=== PATIENT | male | born 1955 | race Caucasian/White ===

== ENCOUNTER 2018-12-24 10:23 | Inpatient (IN) ==
[2018-12-24] MEDS ORDERED: CeFAZolin Syr 2,000MG/20 ML 2,000 MG/20 ML SYRINGE IVPB ONE (10:34)
[2018-12-24] MEDS ORDERED: Albuterol 2.5 MG/3 ML NEBULIZER IH ONE (10:34)
[2018-12-24] MEDS ORDERED: Ringers Solution, Lactated 1,000 ML IVC SCH (10:45)
[2018-12-24] MEDS ORDERED: Heparin 1,000 UNITS/500 mL 500 ML ONE ×2 (10:50→10:59)
[2018-12-24] MEDS ORDERED: Acetaminophen IV 1,000 MG/100 ML INFUS..BTL IVPB ONE (11:22)
[2018-12-24] MEDS ORDERED: *HR* Promethazine 25 MG/ML VIAL IVP PRN (11:22)
[2018-12-24] MEDS ORDERED: *HR* OxyCODONE Immed Rel 5 MG TABLET PO PRN ×2 (11:22→16:41)
[2018-12-24] MEDS ORDERED: *HR* FentaNYL (PF) 100 MCG/2 ML VIAL IVP PRN (11:22)
[2018-12-24 11:35] LABS: BUN/Creatinine Ratio 10 (6-26); Blood Urea Nitrogen 8 mg/dL (8-23); Carbon Dioxide 25 mEq/L (23-29); Chloride 96 mEq/L (98-107); Glucose 95 mg/dL (70-105); Osmolality,Calculated 260 (280-300); Potassium 4.6 mEq/L (3.5-5.1); Sodium 126 mEq/L (136-145); eGFR For African Americans > 60 (> 60); eGFR For Non-African Americans > 60 (> 60)
[2018-12-24] MEDS ORDERED: Calcium Gluconate 1,000 MG/10 ML VIAL ONE (12:29)
[2018-12-24] MEDS ORDERED: Vancomycin 1,000 MG, Sodium Chloride IRRigation 1,000 ML IR ONE (12:30)
[2018-12-24] MEDS ORDERED: *HR* Rocuronium Bromide 50 MG/5 ML VIAL ONE (12:43)
[2018-12-24] MEDS ORDERED: Dexamethasone 4 MG/ML VIAL ONE (12:43)
[2018-12-24] MEDS ORDERED: *HR* Succinylcholine 200 MG/10 ML VIAL IVP ONE (12:43)
[2018-12-24] MEDS ORDERED: Lidocaine HCL 4 ML Topical Solution (Laryng-O-Jet Kit Sterile Pak) TP ONE (12:43)
[2018-12-24] MEDS ORDERED: Ondansetron 4 MG/2 ML VIAL ONE (12:43)
[2018-12-24] MEDS ORDERED: *HR* Propofol 200 MG/20 ML VIAL IVP ONE (12:43)
[2018-12-24] MEDS ORDERED: *HR* FentaNYL (PF) 100 MCG/2 ML VIAL ONE (12:43)
[2018-12-24] MEDS ORDERED: *HR* Metoprolol 5 MG/5 ML VIAL IVP ONE (12:43)
[2018-12-24] MEDS ORDERED: Lidocaine -MPF 2% 2 ML VIAL ONE (12:43)
[2018-12-24] MEDS ORDERED: *HR* Midazolam HCl 2 MG/2 ML VIAL ONE ×2 (12:43)
[2018-12-24] MEDS ORDERED: *HR* PHENYLEPHRINE 1,000 MCG/10 ML SYRINGE IVP ONE (13:58)
[2018-12-24] MEDS ORDERED: *HR* Heparin 5,000 UNIT/ML VIAL ONE ×2 (13:58→14:32)
[2018-12-24] MEDS ORDERED: Neostigmine Methylsulfate 3 MG/3 ML SYRINGE ONE (15:05)
[2018-12-24] MEDS ORDERED: *HR* HYDROMORPHONE 2 MG/ML VIAL ONE (15:10)
[2018-12-24] MEDS ORDERED: *HR* HYDROcodone/Acet 5/325 mg TABLET PO PRN (16:41)
[2018-12-24] MEDS ORDERED: *HR* Labetalol 20 MG/4 ML SYRINGE IVP PRN (16:41)
[2018-12-24] MEDS ORDERED: Ondansetron 4 MG/2 ML VIAL IVP PRN (16:41)
[2018-12-24] MEDS ORDERED: Acetaminophen 325 MG TABLET PO PRN (16:41)
[2018-12-24] MEDS ORDERED: Naloxone 0.4 MG/ML INJ IVP PRN (16:41)
[2018-12-24] MEDS ORDERED: 0.9 % Sodium Chloride 1,000 ML IVC SCH (16:41)
[2018-12-24] MEDS: *HR* Metoprolol 5 MG/5 ML VIAL IVP SCH ×2 (18:44→23:39)
[2018-12-25] MEDS ORDERED: *HR* Heparin 5,000 UNIT/ML VIAL SQ SCH ×2 (06:00)
[2018-12-25 06:15] LABS: Basophils % 0.2 %; Eosinophils % 0.1 %; Hematocrit 40.5 % (37.5-50.1); Hemoglobin 14.2 g/dL (12.9-16.9); Immature Granulocytes % 0.3 % (0-4); Lymphocytes # 1.1 K/mcL (0.6-4.6); Lymphocytes % 11.7 %; Mean Corpuscular HGB Conc 35.1 g/dL (31.6-35.5); Mean Corpuscular Hemoglobin 32.6 pg (28.0-33.3); Mean Corpuscular Volume 92.9 fL (83.0-100.0); Mean Platelet Volume 9.2 fL (9.4-12.4); Monocytes # 0.6 K/mcL (0.0-1.3); Monocytes % 6.7 %; Neutrophils # 7.3 K/mcL (1.6-8.9); Platelet Count 241 K/mcL (140-400); Red Blood Count 4.36 M/mcL (4.19-5.50)
[2018-12-25 06:34] LABS: BUN/Creatinine Ratio 11 (6-26); Blood Urea Nitrogen 8 mg/dL (8-23); Calcium 8.3 mg/dL (8.6-10.3); Carbon Dioxide 17 mEq/L (23-29); Chloride 98 mEq/L (98-107); Glucose 114 mg/dL (70-105); Osmolality,Calculated 259 (280-300); Potassium 4.2 mEq/L (3.5-5.1); Sodium 125 mEq/L (136-145); eGFR For African Americans > 60 (> 60); eGFR For Non-African Americans > 60 (> 60)
[2018-12-25] MEDS: *HR* Metoprolol 5 MG/5 ML VIAL IVP SCH (07:13)
[2018-12-25 07:16] VITALS: BP 124/77
[2018-12-25] MEDS ORDERED: Valsartan 160 MG TABLET PO SCH (09:00)
[2018-12-25] MEDS ORDERED: amLODIPine 5 MG TABLET PO SCH (09:00)
== END 2018-12-25 11:11 | disposition home or self-care (01) | DRG 253 ==
LOC: SAMDAY 10:23 → 2NNU 16:15
PROVIDERS: ADMIT Surgery; ATTEND Surgery

== ENCOUNTER 2021-02-18 09:38 | Inpatient (IN) ==
[2021-02-18] MEDS ORDERED: 0.9 % Sodium Chloride 1,000 ML IVC ONE ×2 (10:27→13:03)
[2021-02-18] MEDS ORDERED: Ketorolac 15 MG/ML VIAL IVP ONE (10:28)
[2021-02-18] MEDS ORDERED: diazePAM 10 MG/2 ML SYRINGE IVP STA (10:28)
[2021-02-18 10:49] LABS: Basophils # 0.1 K/mcL (0.0-0.2); Basophils % 1.4 %; Eosinophils # 0.1 K/mcL (0.0-0.6); Eosinophils % 0.7 %; Hemoglobin 19.9 g/dL (12.9-16.9); Immature Granulocytes % 0.4 % (0-4); Lymphocytes # 1.4 K/mcL (0.6-4.6); Lymphocytes % 19.7 %; Mean Corpuscular HGB Conc 34.6 g/dL (31.6-35.5); Mean Corpuscular Hemoglobin 33.2 pg (28.0-33.3); Mean Platelet Volume 9.8 fL (9.4-12.4); Monocytes # 0.7 K/mcL (0.0-1.3); Monocytes % 9.3 %; Neutrophils # 4.8 K/mcL (1.6-8.9); Platelet Count 207 K/mcL (140-400); Red Blood Count 5.99 M/mcL (4.19-5.50); Red Cell Distribution Width 14.1 % (11.5-14.5); Segmented Neutrophils % 68.5 %; White Blood Count 7.1 K/mcL (4.3-11.1)
[2021-02-18 10:52] LABS: Hematocrit 57.5 % (37.5-50.1)
[2021-02-18 11:15] LABS: Alanine Aminotransferase 17 Units/L (7-52); Albumin 3.8 g/dL (3.5-5.7); Albumin/Globulin Ratio 1.1 (1.1-2.2); Alkaline Phosphatase 74 Units/L (34-104); Aspartate Amino Transferase 31 Units/L (13-39); BUN/Creatinine Ratio 13 (6-26); Bilirubin,Total 0.8 mg/dL (0.3-1.0); Blood Urea Nitrogen 11 mg/dL (8-23); Calcium 9.4 mg/dL (8.6-10.3); Carbon Dioxide 24 mEq/L (23-29); Chloride 100 mEq/L (98-107); Creatine Kinase 518 Units/L (30-223); Globulin 3.4 g/dL (2.4-3.5); Glucose 99 mg/dL (70-105); Osmolality,Calculated 273 (280-300); Sodium 132 mEq/L (136-145); Total Protein 7.2 g/dL (6.4-8.9); eGFR For African Americans > 60 (> 60); eGFR For Non-African Americans > 60 (> 60)
[2021-02-18 13:14] LABS: Bacteria,Urine Few per hpf (None-Few); Bilirubin,Urine Negative (Negative); Blood,Urine Trace (Negative); Clarity,Urine Turbid (Clear); Color,Urine Yellow (Yellow); Glucose,Urine (UA) Normal (Normal); Hyaline Casts,Urine Few per lpf (None Seen); Ketones,Urine Negative (Negative); Leukocyte Esterase,Urine Large (Negative); Mucus,Urine Few per lpf (None-Few); Nitrite,Urine Positive (Negative); Protein,Urine Negative (Neg-Trace); Specific Gravity,Urine 1.012 (1.010-1.025); Urobilinogen,Urine Normal (Normal); WBC,Urine TNTC per hpf (0-3)
[2021-02-18] MEDS ORDERED: Isovue-370 500 ML BOTTLE IVP ONE (14:39)
[2021-02-18] MEDS ORDERED: *HR* Heparin 5,000 UNIT/ML VIAL IVP PRN ×2 (14:46)
[2021-02-18] MEDS ORDERED: *HR* Heparin 5,000 UNIT/ML VIAL IVP ONE (14:46)
[2021-02-18] MEDS ORDERED: Ondansetron 4 MG/2 ML VIAL IVP PRN (15:31)
[2021-02-18] MEDS ORDERED: Naloxone 0.4 MG/ML INJ IVP PRN (15:31)
[2021-02-18] MEDS: Heparin 25,000UNIT/250ML 1/2NS 25,000 UNIT/250 ML IV.SOLN IVC SCH (16:09)
[2021-02-18 16:42] LABS: INR 1.1
[2021-02-18] MEDS: 0.9 % Sodium Chloride 1,000 ML IVC SCH (18:33)
[2021-02-18] MEDS: cefTRIAXone 1,000 MG in Water for inj. (sterile) 10 ML IVP SCH (20:11)
[2021-02-19 00:33] LABS: Basophils # 0.1 K/mcL (0.0-0.2); Basophils % 1.4 %; Eosinophils # 0.1 K/mcL (0.0-0.6); Eosinophils % 1.7 %; Hematocrit 49.3 % (37.5-50.1); Immature Granulocytes % 0.5 % (0-4); Lymphocytes # 2.5 K/mcL (0.6-4.6); Lymphocytes % 38.1 %; Mean Corpuscular HGB Conc 34.1 g/dL (31.6-35.5); Mean Corpuscular Hemoglobin 32.7 pg (28.0-33.3); Mean Corpuscular Volume 96.1 fL (83.0-100.0); Mean Platelet Volume 10.3 fL (9.4-12.4); Monocytes # 0.5 K/mcL (0.0-1.3); Monocytes % 8.1 %; Neutrophils # 3.3 K/mcL (1.6-8.9); Platelet Count 177 K/mcL (140-400); Red Blood Count 5.13 M/mcL (4.19-5.50); Red Cell Distribution Width 13.9 % (11.5-14.5); Segmented Neutrophils % 50.2 %; White Blood Count 6.5 K/mcL (4.3-11.1)
[2021-02-19 00:34] LABS: Hemoglobin 16.8 g/dL (12.9-16.9)
[2021-02-19 00:38] LABS: BUN/Creatinine Ratio 13 (6-26); Blood Urea Nitrogen 10 mg/dL (8-23); Calcium 8.1 mg/dL (8.6-10.3); Carbon Dioxide 19 mEq/L (23-29); Chloride 105 mEq/L (98-107); Chol/HDL Ratio 4.3 (0-4.9); Cholesterol 147 mg/dL (< 200); Glucose 87 mg/dL (70-105); HDL Cholesterol 34 mg/dL (40-59); LDL Cholesterol,Calculated 95 mg/dL (< 100); Osmolality,Calculated 270 (280-300); Potassium 3.9 mEq/L (3.5-5.1); Sodium 131 mEq/L (136-145); Triglycerides 90 mg/dL (< 150); eGFR For African Americans > 60 (> 60); eGFR For Non-African Americans > 60 (> 60)
[2021-02-19] MEDS: 0.9 % Sodium Chloride 1,000 ML IVC SCH ×2 (03:50→17:05)
[2021-02-19] MEDS: Folic Acid 1 MG TABLET PO SCH (08:47)
[2021-02-19] MEDS: Aspirin 81 MG TAB.CHEW PO SCH (08:47)
[2021-02-19] MEDS: Thiamine (B-1) 100 MG TABLET PO SCH (08:47)
[2021-02-19] MEDS ORDERED: Nicotine 2 MG GUM BC PRN (13:21)
[2021-02-19] MEDS: cefTRIAXone 1,000 MG in Water for inj. (sterile) 10 ML IVP SCH (14:59)
[2021-02-19] MEDS: Nicotine 21 MG PATCH.TD24 TD SCH (15:03)
[2021-02-19] MEDS: Heparin 25,000UNIT/250ML 1/2NS 25,000 UNIT/250 ML IV.SOLN IVC SCH (16:59)
[2021-02-20] MEDS: 0.9 % Sodium Chloride 1,000 ML IVC SCH ×2 (06:52→21:06)
[2021-02-20] MEDS ORDERED: *HR* Heparin 5,000 UNIT/ML VIAL ONE (07:23)
[2021-02-20] MEDS ORDERED: Bupivacaine-MPF 0.25% 10 ML VIAL ONE (07:23)
[2021-02-20] MEDS ORDERED: Vancomycin 1,000 MG VIAL ONE (07:24)
[2021-02-20] MEDS: Aspirin 81 MG TAB.CHEW PO SCH (09:32)
[2021-02-20] MEDS: Nicotine 21 MG PATCH.TD24 TD SCH ×2 (09:32→18:33)
[2021-02-20] MEDS: Thiamine (B-1) 100 MG TABLET PO SCH (09:33)
[2021-02-20] MEDS: Folic Acid 1 MG TABLET PO SCH (09:33)
[2021-02-20] MEDS ORDERED: Heparin 1,000 UNITS/500 mL 500 ML ONE ×2 (11:16→12:15)
[2021-02-20] MEDS ORDERED: cefTRIAXone 1,000 MG in Water for inj. (sterile) 10 ML IVP ONE (11:17)
[2021-02-20] MEDS ORDERED: *HR* Rocuronium Bromide 50 MG/5 ML VIAL ONE (11:36)
[2021-02-20] MEDS ORDERED: *HR* Propofol 200 MG/20 ML VIAL IVP ONE ×2 (11:36→15:13)
[2021-02-20] MEDS ORDERED: Ondansetron 4 MG/2 ML VIAL ONE (11:36)
[2021-02-20] MEDS ORDERED: Lidocaine -MPF 2% 5 ML VIAL ONE ×2 (11:36→11:49)
[2021-02-20] MEDS ORDERED: *HR* Succinylcholine 200 MG/10 ML VIAL IVP ONE (11:36)
[2021-02-20] MEDS ORDERED: *HR* Phenylephrine 10 MG/ML VIAL ONE (11:37)
[2021-02-20] MEDS ORDERED: *HR* FentaNYL (PF) 100 MCG/2 ML VIAL ONE ×2 (11:41→15:22)
[2021-02-20] MEDS ORDERED: *HR* Midazolam HCl 2 MG/2 ML VIAL ONE (12:30)
[2021-02-20] MEDS ORDERED: ceFAZolin 2,000 MG in Water for inj. (sterile) 20 ML IVP ONE (13:30)
[2021-02-20] MEDS ORDERED: Sugammadex Sodium 200 MG/2 ML VIAL IV ONE (14:47)
[2021-02-20] MEDS ORDERED: *HR* OxyCODONE Immed Rel 5 MG TABLET PO PRN (17:22)
[2021-02-20] MEDS ORDERED: *HR* HYDROcodone/Acet 5/325 mg TABLET PO PRN (17:22)
[2021-02-20] MEDS ORDERED: *HR* Labetalol 20 MG/4 ML SYRINGE IVP PRN (17:22)
[2021-02-20] MEDS ORDERED: Ondansetron 4 MG/2 ML VIAL IVP PRN (17:22)
[2021-02-20] MEDS ORDERED: Acetaminophen 325 MG TABLET PO PRN ×2 (17:22)
[2021-02-20] MEDS ORDERED: Naloxone 0.4 MG/ML INJ IVP PRN (17:22)
[2021-02-20] MEDS ORDERED: Nicotine 2 MG GUM BC PRN (17:22)
[2021-02-20 17:57] LABS: Basophils % 0.4 %; Hematocrit 52.5 % (37.5-50.1); Hemoglobin 18.2 g/dL (12.9-16.9); Immature Granulocytes % 1.2 % (0-4); Lymphocytes # 0.6 K/mcL (0.6-4.6); Mean Corpuscular HGB Conc 34.7 g/dL (31.6-35.5); Mean Corpuscular Hemoglobin 33.1 pg (28.0-33.3); Mean Corpuscular Volume 95.5 fL (83.0-100.0); Mean Platelet Volume 10.6 fL (9.4-12.4); Monocytes # 0.2 K/mcL (0.0-1.3); Monocytes % 2.2 %; Neutrophils # 6.9 K/mcL (1.6-8.9); Platelet Count 176 K/mcL (140-400); Red Cell Distribution Width 13.8 % (11.5-14.5); Segmented Neutrophils % 88.2 %; White Blood Count 7.8 K/mcL (4.3-11.1)
[2021-02-20] MEDS: Heparin 25,000UNIT/250ML 1/2NS 25,000 UNIT/250 ML IV.SOLN IVC SCH (18:34)
[2021-02-20] MEDS: *HR* OxyCODONE Immed Rel 5 MG TABLET PO PRN (19:30)
[2021-02-20] MEDS: *HR* HYDROcodone/Acet 5/325 mg TABLET PO PRN (21:06)
[2021-02-20] MEDS: CeFAZolin 2 GM/120 ML BAG IVPB SCH (21:12)
[2021-02-21] MEDS: *HR* OxyCODONE Immed Rel 5 MG TABLET PO PRN (01:30)
[2021-02-21] MEDS: *HR* HYDROcodone/Acet 5/325 mg TABLET PO PRN (03:18)
[2021-02-21] MEDS: CeFAZolin 2 GM/120 ML BAG IVPB SCH (04:10)
[2021-02-21] MEDS ORDERED: *HR* Heparin 5,000 UNIT/ML VIAL SQ SCH (06:00)
[2021-02-21 06:03] LABS: Hematocrit 50.4 % (37.5-50.1); Hemoglobin 16.9 g/dL (12.9-16.9); Mean Corpuscular HGB Conc 33.5 g/dL (31.6-35.5); Mean Corpuscular Hemoglobin 32.5 pg (28.0-33.3); Mean Corpuscular Volume 96.9 fL (83.0-100.0); Mean Platelet Volume 10.2 fL (9.4-12.4); Platelet Count 182 K/mcL (140-400); Red Cell Distribution Width 13.8 % (11.5-14.5); White Blood Count 7.3 K/mcL (4.3-11.1)
[2021-02-21] MEDS: 0.9 % Sodium Chloride 1,000 ML IVC SCH (06:16)
[2021-02-21 06:47] VITALS: BP 173/76; PULSE 67; TEMP 97.8; O2SAT 93
[2021-02-21] MEDS ORDERED: Aspirin 81 MG TAB.CHEW PO SCH (09:00)
[2021-02-21] MEDS ORDERED: Thiamine (B-1) 100 MG TABLET PO SCH (09:00)
[2021-02-21] MEDS ORDERED: Folic Acid 1 MG TABLET PO SCH (09:00)
[2021-02-21] MEDS ORDERED: Nicotine 21 MG PATCH.TD24 TD SCH (09:00)
== END 2021-02-21 10:41 | disposition home or self-care (01) | DRG 271 ==
LOC: EMEROOARM 09:38 → 3ANU 09:38 → SUATTDRO 17:00 → 3ANU 18:21
PROVIDERS: ADMIT General Practice; ATTEND Internal Medicine

== ENCOUNTER 2021-04-27 09:21 | Inpatient (IN) ==
[~2021-04-27 09:21] MED LIST: *HR* FentaNYL (PF) 100 MCG/2 ML VIAL IVP PRN; *HR* HYDROmorphone PF 0.5 MG/0.5 ML SYRINGE IVP PRN; *HR* OxyCODONE Immed Rel 5 MG TABLET PO ONE; Ondansetron 4 MG/2 ML VIAL IVP PRN
[2021-04-27] MEDS ORDERED: *HR* Midazolam HCl 2 MG/2 ML VIAL ONE (09:30)
[2021-04-27] MEDS ORDERED: *HR* FentaNYL (PF) 100 MCG/2 ML VIAL ONE (09:30)
[2021-04-27] MEDS ORDERED: *HR* Propofol 200 MG/20 ML VIAL IVP ONE (09:31)
[2021-04-27] MEDS ORDERED: Lidocaine -MPF 2% 5 ML VIAL ONE (09:35)
[2021-04-27] MEDS ORDERED: Ondansetron 4 MG/2 ML VIAL ONE (09:35)
[2021-04-27] MEDS ORDERED: Ipratropium/Albuterol Neb 3 ML IH ONE (09:53)
[2021-04-27] MEDS ORDERED: *HR* OxyCODONE Immed Rel 5 MG TABLET PO ONE (09:53)
[2021-04-27] MEDS ORDERED: Ropivacaine/PF 0.5% 30 ML VIAL ONE (10:15)
[2021-04-27] MEDS ORDERED: ROPIVACAINE/PF/NS 0.25% 1 EACH SYRINGE INTRAART ONE (10:16)
[2021-04-27] MEDS ORDERED: CeFAZolin Syr 2,000MG/20 ML 2,000 MG/20 ML SYRINGE IVPB ONE (10:18)
[2021-04-27] MEDS ORDERED: Vancomycin 1,250 MG/262.5 ML IV.SOLN IVPB ONE (10:18)
[2021-04-27] MEDS ORDERED: Ringers Solution, Lactated 1,000 ML IVC SCH (10:30)
[2021-04-27] MEDS ORDERED: Famotidine 20 MG TABLET PO ONE (10:45)
[2021-04-27] MEDS ORDERED: Vancomycin 1,000 MG, Sodium Chloride IRRigation 1,000 ML IR ONE (11:05)
[2021-04-27] MEDS ORDERED: *HR* HYDROMORPHONE 2 MG/ML VIAL ONE (12:03)
[2021-04-27] MEDS ORDERED: Naloxone 0.4 MG/ML INJ IVP PRN (16:44)
[2021-04-27] MEDS ORDERED: 0.9 % Sodium Chloride 1,000 ML IVC SCH (16:44)
[2021-04-27] MEDS ORDERED: traZODone 50 MG TABLET PO PRN (16:44)
[2021-04-27] MEDS ORDERED: Ondansetron 4 MG/2 ML VIAL IVP PRN (16:44)
[2021-04-27] MEDS ORDERED: *HR* OxyCODONE/APAP 5/325 TABLET PO PRN (16:44)
[2021-04-27] MEDS ORDERED: *HR* Labetalol 20 MG/4 ML SYRINGE IVP PRN (16:44)
[2021-04-27] MEDS ORDERED: *HR* OxyCODONE/APAP 10/325 TABLET PO PRN (16:44)
[2021-04-27] MEDS: Ketorolac 30 MG/ML VIAL IVP SCH (17:55)
[2021-04-27] MEDS: *HR* Metoprolol 5 MG/5 ML VIAL IVP SCH (17:55)
[2021-04-27] MEDS: CeFAZolin 2 GM/120 ML BAG IVPB SCH (19:55)
[2021-04-28] MEDS: *HR* Metoprolol 5 MG/5 ML VIAL IVP SCH ×5 (00:18→23:04)
[2021-04-28] MEDS: Ketorolac 30 MG/ML VIAL IVP SCH ×5 (00:18→23:03)
[2021-04-28] MEDS: CeFAZolin 2 GM/120 ML BAG IVPB SCH (03:57)
[2021-04-28] MEDS ORDERED: *HR* Heparin 5,000 UNIT/ML VIAL SQ SCH (06:00)
[2021-04-28 07:03] LABS: Basophils % 0.5 %; Eosinophils % 0.6 %; Hematocrit 34.5 % (37.5-50.1); Hemoglobin 11.5 g/dL (12.9-16.9); Immature Granulocytes % 0.8 % (0-4); Lymphocytes # 1.1 K/mcL (0.6-4.6); Lymphocytes % 17.5 %; Mean Corpuscular HGB Conc 33.3 g/dL (31.6-35.5); Mean Corpuscular Hemoglobin 30.5 pg (28.0-33.3); Mean Corpuscular Volume 91.5 fL (83.0-100.0); Mean Platelet Volume 9.5 fL (9.4-12.4); Monocytes # 0.6 K/mcL (0.0-1.3); Monocytes % 9.7 %; Neutrophils # 4.6 K/mcL (1.6-8.9); Platelet Count 310 K/mcL (140-400); Red Blood Count 3.77 M/mcL (4.19-5.50); Red Cell Distribution Width 13.1 % (11.5-14.5); Segmented Neutrophils % 70.9 %; White Blood Count 6.5 K/mcL (4.3-11.1)
[2021-04-28 07:22] LABS: BUN/Creatinine Ratio 25 (6-26); Blood Urea Nitrogen 16 mg/dL (8-23); Calcium 8.2 mg/dL (8.6-10.3); Carbon Dioxide 19 mEq/L (23-29); Chloride 97 mEq/L (98-107); Glucose 87 mg/dL (70-105); Osmolality,Calculated 265 (280-300); Potassium 3.7 mEq/L (3.5-5.1); Sodium 127 mEq/L (136-145); eGFR For African Americans > 60 (> 60); eGFR For Non-African Americans > 60 (> 60)
[2021-04-28] MEDS: Lisinopril-HCTZ 20-12.5mg TABLET PO SCH (08:04)
[2021-04-28] MEDS: *HR* OxyCODONE/APAP 7.5/325 TABLET PO PRN ×2 (08:05→13:17)
[2021-04-28] MEDS: Aspirin Enteric Coated 81 MG Tablet PO SCH (08:05)
[2021-04-29] MEDS: Ketorolac 30 MG/ML VIAL IVP SCH ×4 (05:50→23:17)
[2021-04-29] MEDS: *HR* Metoprolol 5 MG/5 ML VIAL IVP SCH ×4 (05:50→23:18)
[2021-04-29] MEDS: Lisinopril-HCTZ 20-12.5mg TABLET PO SCH (08:23)
[2021-04-29] MEDS: Aspirin Enteric Coated 81 MG Tablet PO SCH (08:24)
[2021-04-29] MEDS: *HR* OxyCODONE/APAP 7.5/325 TABLET PO PRN (12:02)
[2021-04-30] MEDS: Ketorolac 30 MG/ML VIAL IVP SCH ×2 (05:19→11:48)
[2021-04-30] MEDS: *HR* Metoprolol 5 MG/5 ML VIAL IVP SCH ×2 (05:19→11:47)
[2021-04-30 06:52] VITALS: TEMP 97.9
[2021-04-30] MEDS ORDERED: Famotidine 20 MG TABLET PO ONE (07:00)
[2021-04-30] MEDS: Lisinopril-HCTZ 20-12.5mg TABLET PO SCH (08:03)
[2021-04-30] MEDS: Aspirin Enteric Coated 81 MG Tablet PO SCH (08:03)
[2021-04-30 11:46] VITALS: BP 145/82; PULSE 72; O2SAT 98
== END 2021-04-30 14:22 | disposition home health service (06) | DRG 241 ==
LOC: SAMDAY 09:21 → 3NENU 14:20
PROVIDERS: ADMIT Surgery; ATTEND Surgery

== ENCOUNTER 2021-05-24 06:13 | Inpatient (IN) ==
[2021-05-24] MEDS ORDERED: Ringers Solution, Lactated 1,000 ML IVC SCH (07:45)
[2021-05-24] MEDS ORDERED: Ketamine HCL *QUVA* 50mg (1mL) SYRINGE ONE (09:21)
[2021-05-24] MEDS ORDERED: Ropivacaine/PF 0.5% 30 ML VIAL ONE (09:22)
[2021-05-24] MEDS ORDERED: *HR* Midazolam HCl 5 MG/5 ML VIAL IVP ONE (09:23)
[2021-05-24] MEDS ORDERED: CeFAZolin Syr 2,000MG/20 ML 2,000 MG/20 ML SYRINGE IVPB ONE (09:45)
[2021-05-24] MEDS ORDERED: *HR* Propofol 200 MG/20 ML VIAL IVP ONE ×2 (09:48→10:29)
[2021-05-24] MEDS ORDERED: *HR* FentaNYL (PF) 100 MCG/2 ML VIAL ONE (10:03)
[2021-05-24] MEDS ORDERED: Ondansetron 4 MG/2 ML VIAL IVP PRN (11:19)
[2021-05-24] MEDS ORDERED: *HR* OxyCODONE Immed Rel 5 MG TABLET PO PRN (11:19)
[2021-05-24] MEDS ORDERED: *HR* HYDROcodone/Acet 5/325 mg TABLET PO PRN (12:06)
[2021-05-24] MEDS ORDERED: *HR* OxyCODONE/APAP 7.5/325 TABLET PO PRN (12:06)
[2021-05-24] MEDS ORDERED: traZODone 50 MG TABLET PO PRN (12:06)
[2021-05-24] MEDS ORDERED: Naloxone 0.4 MG/ML INJ IVP PRN (12:06)
[2021-05-24] MEDS ORDERED: *HR* Labetalol 20 MG/4 ML SYRINGE IVP PRN (12:06)
[2021-05-24] MEDS ORDERED: *HR* OxyCODONE/APAP 5/325 TABLET PO PRN (12:06)
[2021-05-24] MEDS ORDERED: Acetaminophen 325 MG TABLET PO PRN (12:06)
[2021-05-24] MEDS ORDERED: 0.9 % Sodium Chloride 1,000 ML IVC SCH (12:06)
[2021-05-24] MEDS ORDERED: Vancomycin 1,000 MG, Sodium Chloride IRRigation 1,000 ML IR ONE (12:10)
[2021-05-24] MEDS: *HR* OxyCODONE/APAP 10/325 TABLET PO PRN ×2 (12:44→23:47)
[2021-05-24] MEDS: *HR* Metoprolol 5 MG/5 ML VIAL IVP SCH ×3 (12:46→23:44)
[2021-05-24 13:16] LABS: Basophils # 0.1 K/mcL (0.0-0.2); Basophils % 0.4 %; Eosinophils % 0.3 %; Hematocrit 30.3 % (37.5-50.1); Hemoglobin 10.5 g/dL (12.9-16.9); Immature Granulocytes % 2.3 % (0-4); Lymphocytes # 0.6 K/mcL (0.6-4.6); Mean Corpuscular HGB Conc 34.7 g/dL (31.6-35.5); Mean Corpuscular Hemoglobin 31.3 pg (28.0-33.3); Mean Corpuscular Volume 90.2 fL (83.0-100.0); Mean Platelet Volume 9.6 fL (9.4-12.4); Monocytes # 0.2 K/mcL (0.0-1.3); Monocytes % 2.1 %; Platelet Count 341 K/mcL (140-400); Red Blood Count 3.36 M/mcL (4.19-5.50); Red Cell Distribution Width 13.4 % (11.5-14.5); Segmented Neutrophils % 89.9 %; White Blood Count 11.2 K/mcL (4.3-11.1)
[2021-05-24] MEDS: CeFAZolin 2 GM/120 ML BAG IVPB SCH ×2 (15:46→23:43)
[2021-05-25] MEDS: *HR* Metoprolol 5 MG/5 ML VIAL IVP SCH ×2 (05:35→11:59)
[2021-05-25] MEDS ORDERED: *HR* Heparin 5,000 UNIT/ML VIAL SQ SCH ×2 (06:00)
[2021-05-25 06:45] LABS: BUN/Creatinine Ratio 49 (6-26); Blood Urea Nitrogen 56 mg/dL (8-23); Calcium 8.7 mg/dL (8.6-10.3); Carbon Dioxide 22 mEq/L (23-29); Chloride 98 mEq/L (98-107); Glucose 101 mg/dL (70-105); Osmolality,Calculated 282 (280-300); Potassium 3.6 mEq/L (3.5-5.1); Sodium 128 mEq/L (136-145); eGFR For African Americans > 60 (> 60); eGFR For Non-African Americans > 60 (> 60)
[2021-05-25] MEDS: *HR* OxyCODONE/APAP 10/325 TABLET PO PRN ×2 (08:19→11:59)
[2021-05-25] MEDS ORDERED: hydroCHLOROthiazide 25 MG TABLET PO SCH (09:00)
[2021-05-25] MEDS ORDERED: Aspirin Enteric Coated 81 MG Tablet PO SCH (09:00)
[2021-05-25] MEDS ORDERED: Lisinopril-HCTZ 20-12.5mg TABLET PO SCH (09:00)
[2021-05-25] MEDS ORDERED: Valsartan 80 MG TABLET PO SCH (09:00)
[2021-05-25 11:05] VITALS: BP 109/64; TEMP 98.4; O2SAT 95
[2021-05-25 12:27] VITALS: PULSE 102
== END 2021-05-25 15:17 | disposition home or self-care (01) | DRG 240 ==
LOC: SAMDAY 06:13 → 2NNU 11:43
PROVIDERS: ADMIT Surgery; ATTEND Surgery